=== PATIENT | female | born 1965 | race Caucasian/White ===

== ENCOUNTER 2018-02-11 16:16 | Emergency (ER) | payer BC ==
[2018-02-11] MEDS ORDERED: TORAdol 30 mg Injection IM ONE (17:00)
--- NOTE | 2018-02-11 17:00 | ERPHSYRPT ---
- History of Present Illness Time Seen by Provider: 02/11/18 16:56 Source: patient Exam Limitations: no limitations Patient Subjective Stated Complaint: pt reports low back pain beginning months ago-worsening when she works-reports history of osteoporosis with sharp shooting pains going up her back-denies injury-denies fall Triage Nursing Assessment: pt pale warm and jzm-yoajn-of bruising or abrasions noted-pt ambulatory with no difficulty-moving all extremities with ease Physician History: 52-year-old white female arrives with complaint of back pain located in the mid lower lumbar region symptoms for 2 weeks worse with moving. She denies any injuries. Past medical history includes mitral valve prolapse and celiac disease. Past surgical history includes cholecystectomy hernia repair, hysterectomy. Timing/Duration: week(s) (2 weeks) Severity: moderate Modifying Factors: Improves With: movement Associated Symptoms: No nausea, No abdominal pain, No shortness of breath, No heartburn, No diaphoresis, No cough, No chills, No chest pain, No fever, No headaches, No loss of appetite, No malaise, No rash, No syncope, No seizure, No weakness Allergies/Adverse Reactions: No Known Drug Allergies Allergy (Unverified 02/11/18 16:28) Home Medications: Calcium [Hi-Willie] 500 mg PO DAILY 02/11/18 [History] Hx Tetanus, Diphtheria Vaccination/Date Given: No Hx Influenza Vaccination/Date Given: No Hx Pneumococcal Vaccination/Date Given: No Immunizations Up to Date: Yes - Review of Systems Constitutional: No Fever, No Chills Eyes: No Symptoms Ears, Nose, & Throat: No Symptoms Respiratory: No Cough, No Dyspnea Cardiac: No Chest Pain, No Edema, No Syncope Abdominal/Gastrointestinal: No Abdominal Pain, No Nausea, No Vomiting, No Diarrhea Genitourinary Symptoms: No Dysuria Musculoskeletal: Back Pain Skin: No Rash Neurological: No Dizziness, No Focal Weakness, No Sensory Changes Psychological: No Symptoms Endocrine: No Symptoms All Other Systems: Reviewed and Negative - Past Medical History Pertinent Past Medical History: Yes Cardiac History: Other Other Medical History: mitral valve. celiac - Past Surgical History Past Surgical History: Yes Gastrointestinal: Cholecystectomy, Hernia Repair Female Surgical History: Hysterectomy - Social History Smoking Status: Current every day smoker How long have you smoked: yrs Exposure to second hand smoke: Yes Drug Use: none Patient Lives Alone: No - Female History Hx Last Menstrual Period: hysterecotmy Hx Now: No - Nursing Vital Signs Nursing Vital Signs: Initial Vital Signs Temperature 98.4 F 02/11/18 16:24 Pulse Rate 94 H 02/11/18 16:24 Respiratory Rate 18 02/11/18 16:24 Blood Pressure 108/70 02/11/18 16:24 O2 Sat by Pulse Oximetry 98 02/11/18 16:24 Pain Scale Pain Intensity 7 - Physical Exam General Appearance: no apparent distress, alert Eye Exam: PERRL/EOMI Ears, Nose, Throat Exam: normal ENT inspection, TMs normal, pharynx normal, moist mucous membranes Neck Exam: normal inspection, non-tender, supple, full range of motion Respiratory Exam: normal breath sounds, lungs clear, No respiratory distress Cardiovascular Exam: regular rate/rhythm, normal heart sounds, normal peripheral pulses Gastrointestinal/Abdomen Exam: soft, normal bowel sounds, No tenderness, No mass Back Exam: other (tender with palpation and movement in the midline loew lumbar area ) Extremity Exam: normal inspection, normal range of motion, pelvis stable Neurologic Exam: alert, oriented x 3, cooperative, normal mood/affect, nml cerebellar function, nml station & gait, sensation nml, No motor deficits Skin Exam: normal color, warm, dry, No rash SpO2 Interpretation: normal (98%) SpO2: 98 Oxygen Delivery: Room Air - Course Nursing assessment & vital signs reviewed: Yes - Radiology Exams L-Spine X-ray Interpretation: Interpreted by me, Negative, No Fracture, No Subluxation Ordered Tests: Active Orders 24 hr Category Date Time Status LUMBAR LIMITED (2 OR 3 VIEWS) Stat Exams 02/11/18 18:09 Taken Medication Summary Discontinued Medications Generic Name Dose Route Start Last Admin Trade Name Guerrero PRN Reason Stop Dose Admin Ketorolac Tromethamine 60 mg 02/11/18 17:00 02/11/18 17:10 Toradol 30 Mg Injection IM 02/11/18 17:01 60 mg STAT ONE Administration Ketorolac Tromethamine Confirm 02/11/18 17:07 Toradol 30 Mg Injection Administered 02/11/18 17:08 Dose 60 mg .ROUTE .STK-MED ONE - Progress Progress: improved Progress Note: 02/11/18 16:58 This is a 52-year-old white female with a history of osteoporosis, mitral valve prolapse, celiac disease, She arrives with complaint of pain in her midline low lumbar region worse with moving and palpation symptoms for 2 weeks. Patient has no neurologic symptoms. On physical examination she is tender with palpation midline low lumbar region. Patient states she has tenderness with movement however she is able to bend forward with her knees extended in her hips flexed forward without problems. Will go ahead and x-ray patient's lumbar region. Will go ahead and give patient Toradol IM for pain. 02/11/18 18:24 Patient's x-ray lumbar spine no acute fracture no subluxation. patient is improved but not completely pain-free with Toradol. Will plan to send patient home with Naprosyn and Flexeril. - Departure Time of Disposition: 18:24 Departure Disposition: Home Clinical Impression: Back pain Qualifiers: Back pain location: low back pain Chronicity: acute Back pain laterality: midline Sciatica presence: without sciatica Qualified Code(s): M54.5 - Low back pain Lumbar strain Qualifiers: Encounter type: initial encounter Qualified Code(s): S39.012A - Strain of muscle, fascia and tendon of lower back, initial encounter Condition: Fair Critical Care Time: No Referrals: DOCTOR,NO FAMILY [Primary Care Provider] - Instructions: Low Back Pain (DC) Additional Instructions: Return home. Avoid heavy lifting greater than 5 pounds, repetitive bending twisting pushing pulling for 48 hours. Flexeril 10 mg orally 3 times a day for 5 days. Naprosyn 500 mg orally twice a day with food as needed for pain #20. Follow-up with your family symptoms are worse, no better in 48 hours, or persist longer than one week. Return for acute distress or for severe symptoms. your x rays have been preliminarily read, they will be reread tomorrow you will be contacted if any discrepancies are noted. Prescriptions: Cyclobenzaprine HCl [Flexeril] 10 mg PO TID #15 tablet Naproxen 500 mg [Naprosyn 500 MG] 500 mg PO BID #20 tablet
[2018-02-11] MEDS ORDERED: TORAdol 30 mg Injection ONE (17:07)
[2018-02-11 18:45] VITALS: BP 121/60; PULSE 90; O2SAT 99
--- NOTE | 2018-02-12 09:14 | XRAY ---
Exam: 3 view lumbar spine series from 02/11/2018. Comparison: None. Indication: Low back pain, no known injury, history of osteoporosis. Findings: AP, lateral, and a coned-down lateral film of the lumbosacral junction were obtained. Slight convexity of the lower lumbar spine toward the right centered at L3-L4 is seen. The sacroiliac joints appear unremarkable. Surgical clips consistent with prior cholecystectomy are seen within the right upper quadrant. The lumbar vertebral body heights are normal, as are the lumbar interspace heights. No acute lumbar spine fracture, AP subluxation, or bone destruction is seen. The neural foramen are patent on the lateral images. Impression: 1. No acute fracture, AP subluxation, or other significant focal bone lesion is seen.
== END 2018-02-11 18:44 | disposition home or self-care (01) ==
LOC: ED 16:16
DX: M54.5 Low back pain (principal); S39.012A Strain of muscle, fascia and tendon of lower back, initial encounter
CPT/HCPCS: 72100; 96372; 99284; J1885

== ENCOUNTER 2018-10-29 00:26 | Emergency (ER) | payer BC ==
--- NOTE | 2018-10-29 00:30 | ERPHSYRPT ---
- History of Present Illness Time Seen by Provider: 10/29/18 00:30 Source: patient Exam Limitations: no limitations Physician History: 53 y/o white female presents to ED with left rib pain after a fall injury that occurred at 1800 10/28/17. pt did not take any medication for pain. 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 Occurred: this evening Reason for Fall: tripped (over dog gate) Injuries/Pain Location: chest (left ribs) Loss of Consciousness: no loss of consciousness Severity of Pain-Max: moderate Severity of Pain-Current: moderate Modifying Factors: Improves With: movement, other (deep breath worsens) Associated Symptoms (Fall): other (left rib pain) Allergies/Adverse Reactions: No Known Drug Allergies Allergy (Unverified 02/11/18 16:28) Home Medications: Calcium [Hi-Willie] 500 mg PO DAILY 02/11/18 [History] Hx Tetanus, Diphtheria Vaccination/Date Given: No Hx Influenza Vaccination/Date Given: No Hx Pneumococcal Vaccination/Date Given: No - Review of Systems Constitutional: No Symptoms Eyes: No Symptoms Ears, Nose, & Throat: No Symptoms Respiratory: No Symptoms Cardiac: No Symptoms Abdominal/Gastrointestinal: No Symptoms Genitourinary Symptoms: No Symptoms Musculoskeletal: Fall, Other (left rib) Skin: No Symptoms Neurological: No Symptoms Psychological: No Symptoms Endocrine: No Symptoms Hematologic/Lymphatic: No Symptoms Immunological/Allergic: No Symptoms All Other Systems: Reviewed and Negative - Past Medical History Pertinent Past Medical History: Yes Neurological History: No Pertinent History ENT History: No Pertinent History Cardiac History: Other Respiratory History: No Pertinent History Endocrine Medical History: No Pertinent History Musculoskeletal History: Osteoporosis GI Medical History: No Pertinent History History: No Pertinent History Psycho-Social History: No Pertinent History Female Reproductive Disorders: No Pertinent History Other Medical History: mitral valve. celiac - Past Surgical History Past Surgical History: Yes Neuro Surgical History: No Pertinent History Cardiac: No Pertinent History Respiratory: No Pertinent History Gastrointestinal: Cholecystectomy, Hernia Repair Genitourinary: No Pertinent History Musculoskeletal: No Pertinent History Female Surgical History: Hysterectomy - Social History Smoking Status: Current every day smoker How long have you smoked: yrs Exposure to second hand smoke: Yes Drug Use: none Patient Lives Alone: No - Nursing Vital Signs Nursing Vital Signs: Initial Vital Signs Temperature 97.7 F 10/29/18 00:27 Pulse Rate 85 10/29/18 00:27 Respiratory Rate 18 10/29/18 00:27 Blood Pressure 139/77 10/29/18 00:27 O2 Sat by Pulse Oximetry 98 10/29/18 00:27 Pain Scale Pain Intensity 10 - Luis Fernando Coma Score Best Eye Response (Luis Fernando): (4) open spontaneously Best Verbal Response ([place]): (5) oriented Best Motor Response (Luis Fernando): (6) obeys commands Luis Fernando Total: 15 - Physical Exam General Appearance: mild distress, alert, anxiety Head Injury: no evidence of injury, No Woodruff's Sign, No contusions, No ecchymosis, No raccoon eyes Eye Exam: PERRL/EOMI, eyes nml inspection ENT Exam: airway nml Neck Exam: supple, trachea midline, full range of motion, normal alignment, normal inspection Respiratory/Chest Exam: chest tenderness (left ribs), normal breath sounds, rib tenderness (left lateral), No respiratory distress, No ecchymosis Gastrointestinal Exam: soft, normal bowel sounds, No tenderness Rectal Exam: not done Back Exam: normal inspection, normal range of motion, No CVA tenderness, No vertebral tenderness Extremity Exam: normal inspection, normal range of motion, pelvis stable Neurologic Exam: alert, oriented x 3, cooperative, 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 Skin Exam: normal color, warm, dry SpO2 Interpretation: normal O2 Delivery: Room Air Ordered Tests: Active Orders 24 hr Category Date Time Status RIBS UNILATERAL Stat Exams 10/29/18 00:34 Taken Medication Summary Discontinued Medications Generic Name Dose Route Start Last Admin Trade Name Oseasq PRN Reason Stop Dose Admin Lorazepam 0.5 mg 10/29/18 00:35 10/29/18 00:57 Ativan 0.5 Mg PO 10/29/18 00:36 0.5 mg STAT ONE Administration Lorazepam Confirm 10/29/18 00:54 Ativan 1 Mg Administered 10/29/18 00:55 Dose 1 mg .ROUTE .STK-MED ONE Oxycodone/Acetaminophen 1 tab 10/29/18 00:39 10/29/18 00:56 Percocet Tablet 5/325mg PO 10/29/18 00:40 1 tab STAT STA Administration Oxycodone/Acetaminophen Confirm 10/29/18 00:54 Percocet Tablet 5/325mg Administered 10/29/18 00:55 Dose 1 tab .ROUTE .STK-MED ONE Prednisone 10 mg 10/29/18 00:40 10/29/18 00:58 Deltasone 10 Mg PO 10/29/18 00:41 10 mg STAT ONE Administration Prednisone Confirm 10/29/18 00:54 Deltasone 20 Mg Administered 10/29/18 00:55 Dose 20 mg .ROUTE .STK-MED ONE - Progress Progress: improved, pain not gone completely, re-examined Progress Note: 10/29/18 01:28 rib xray-no acute process Counseled pt/family regarding: diagnosis, need for follow-up, rad results - Departure Time of Disposition: 01:29 Departure Disposition: Home Clinical Impression: Contusion of rib on left side Condition: Stable Critical Care Time: No Referrals: DOCTOR,NO FAMILY [Primary Care Provider] - Additional Instructions: ice pack to are 3 times daily for 2 days. add ibuprofen for pain. follow up with primary doctor for further management. Prescriptions: Oxycodone HCl/Acetaminophen [Percocet 5-325 mg Tablet] 1 each PO Q6H PRN PRN # 10 tablet MDD 4 PRN Reason: Pain Cyclobenzaprine HCl 10 mg [Cyclobenzaprine 10 MG] 10 mg PO TID #10 tablet
[2018-10-29] MEDS ORDERED: Ativan 0.5 MG PO ONE (00:35)
[2018-10-29] MEDS ORDERED: PERCOCET TABLET 5/325MG PO STA ×2 (00:39→01:36)
[2018-10-29] MEDS ORDERED: DELTASONE 10 MG PO ONE (00:40)
[2018-10-29] MEDS ORDERED: PERCOCET TABLET 5/325MG ONE ×2 (00:54→01:38)
[2018-10-29] MEDS ORDERED: DELTASONE 20 MG ONE (00:54)
[2018-10-29] MEDS ORDERED: Ativan 1 MG ONE (00:54)
[2018-10-29 01:57] VITALS: BP 121/76; PULSE 83; O2SAT 95
--- NOTE | 2018-10-29 08:42 | XRAY ---
Indication: Pain following fall. Comparison: None 2 views of the left ribs obtained. No bony, articular, or soft tissue abnormalities.
== END 2018-10-29 01:56 | disposition home or self-care (01) ==
LOC: ED 00:26
DX: S20.212A Contusion of left front wall of thorax, initial encounter (principal); M81.0 Age-related osteoporosis without current pathological fracture; W01.198S Fall on same level from slipping, tripping and stumbling with subsequent striking against other object, sequela
CPT/HCPCS: 71100; 99284; A9270-GY

== ENCOUNTER 2020-04-06 15:34 | Emergency (ER) | payer BC ==
--- NOTE | 2020-04-06 15:42 | ERPHSYRPT ---
- History of Present Illness Time Seen by Provider: 04/06/20 15:42 Source: patient Exam Limitations: no limitations Physician History: This is a 54-year-old white female who is right-handed and tripped and fell early this morning after midnight when she got up out of bed injuring her right hand and lower back. Patient presents to the emergency department with a thumb splint in place on her right hand. Patient did not hit her head per her report. Patient is able to ambulate and did ambulate to her room. Occurred: this morning Method of Injury: fell Quality: constant, aching Severity of Pain-Max: mild Severity of Pain-Current: mild Extremities Pain Location: hand: right Modifying Factors: Improves With: movement Associated Symptoms: back pain (Lower lumbar) Allergies/Adverse Reactions: No Known Drug Allergies Allergy (Verified 04/06/20 15:55) Hx Tetanus, Diphtheria Vaccination/Date Given: No Hx Influenza Vaccination/Date Given: No Hx Pneumococcal Vaccination/Date Given: No Travel Risk - International Travel Have you traveled outside of the country in past 3 weeks: No - Coronavirus Screening Are you exhibiting any of the following symptoms?: No Close contact with a COVID-19 positive Pt in past 14-21 Days: No - Review of Systems Constitutional: No Symptoms Eyes: No Symptoms Ears, Nose, & Throat: No Symptoms Respiratory: No Symptoms Cardiac: No Symptoms Abdominal/Gastrointestinal: No Symptoms Genitourinary Symptoms: No Symptoms Musculoskeletal: Back Pain, Fall, Injury (Right hand (thumb hurts the most) full range of motion but painful to do so) Skin: No Symptoms Neurological: No Symptoms Psychological: No Symptoms Endocrine: No Symptoms Hematologic/Lymphatic: No Symptoms Immunological/Allergic: No Symptoms All Other Systems: Reviewed and Negative - Past Medical History Pertinent Past Medical History: Yes Neurological History: No Pertinent History ENT History: No Pertinent History Cardiac History: Other Respiratory History: No Pertinent History Endocrine Medical History: No Pertinent History Musculoskeletal History: Osteoporosis GI Medical History: No Pertinent History History: No Pertinent History Psycho-Social History: No Pertinent History Female Reproductive Disorders: No Pertinent History Other Medical History: mitral valve. celiac - Past Surgical History Past Surgical History: Yes Neuro Surgical History: No Pertinent History Cardiac: No Pertinent History Respiratory: No Pertinent History Gastrointestinal: Cholecystectomy, Hernia Repair Genitourinary: No Pertinent History Musculoskeletal: No Pertinent History Female Surgical History: Hysterectomy - Social History Smoking Status: Current every day smoker How long have you smoked: yrs Exposure to second hand smoke: Yes Drug Use: none Patient Lives Alone: No - Nursing Vital Signs Nursing Vital Signs: Initial Vital Signs Temperature 97.8 F 04/06/20 15:50 Pulse Rate 88 04/06/20 15:50 Respiratory Rate 16 04/06/20 15:50 Blood Pressure 106/66 04/06/20 15:50 O2 Sat by Pulse Oximetry 98 04/06/20 15:50 Pain Scale Pain Intensity 10 - Physical Exam General Appearance: no apparent distress, alert, anxiety Eyes, Ears, Nose, Throat Exam: normal ENT inspection, moist mucous membranes Neck Exam: normal inspection, non-tender, supple, full range of motion Cardiovascular/Respiratory Exam: chest non-tender Abdominal Exam: non-tender Back Exam: normal inspection, normal range of motion, muscle spasm (Paraspinous muscles lumbar level), No CVA tenderness, No vertebral tenderness Shoulder Exam: normal inspection, non-tender, no evidence of injury, normal ROM Elbow/Forearm Exam: normal inspection, non-tender, no evidence of injury, normal ROM Wrist Exam: normal inspection, non-tender, no evidence of injury, normal ROM Hand Exam: normal ROM, bone tenderness (Right thumb), limited ROM (Right thumb), stiffness (Right thumb) Neuro/Tendon Exam: normal sensation, normal motor functions, normal tendon functions, responds to pain Mental Status Exam: alert, oriented x 3, cooperative Skin Exam: normal color, warm, dry SpO2 Interpretation: normal O2 Delivery: Room Air - Course Nursing assessment & vital signs reviewed: Yes Ordered Tests: Active Orders 24 hr Category Date Time Status HAND (MINIMUM 3 VIEWS) Stat Exams 04/06/20 15:57 Completed LUMBAR LIMITED (2 OR 3 VIEWS) Stat Exams 04/06/20 15:57 Completed - Progress Progress: unchanged, pain not gone completely, re-examined Progress Note: 04/06/20 16:33 X-ray of right hand reveals no acute fracture or dislocation. X-ray of the lumbar spine reveals no evidence of acute fracture or subluxation. Counseled pt/family regarding: diagnosis, need for follow-up, rad results - Departure Departure Disposition: Home Clinical Impression: Fall with injury, Lumbar strain, Sprain of hand, thumb, right Condition: Stable Critical Care Time: No Referrals: DOCTOR,NO FAMILY [Primary Care Provider] - Additional Instructions: Ice pack to area 3 times a day for 48 hours. Use Tylenol and ibuprofen for pain. Follow-up with your primary care physician for persistent symptoms.
[2020-04-06 15:56] VITALS: BP 106/66; PULSE 88; O2SAT 98
--- NOTE | 2020-04-06 16:30 | XRAY ---
Indication: Pain following fall. Comparison: None 3 view right hand obtained. No bony, articular, or soft tissue abnormalities.
--- NOTE | 2020-04-06 16:33 | XRAY ---
Indication: Pain following fall. Comparison: February 20, 2018. 3 view lumbar spine unchanged again demonstrating minimal dextroscoliosis, minimal multilevel endplate spurring, and cholecystectomy clips. No new/acute bony, articular, or soft tissue abnormalities.
== END 2020-04-06 17:36 | disposition home or self-care (01) ==
LOC: ED 15:34
DX: S39.012A Strain of muscle, fascia and tendon of lower back, initial encounter (principal); S63.601A Unspecified sprain of right thumb, initial encounter; W19.XXXA Unspecified fall, initial encounter; Y93.9 Activity, unspecified; Y92.9 Unspecified place or not applicable
CPT/HCPCS: 72100; 73130; 99283